=== PATIENT | female | born 1950 | race Caucasian/White ===

== ENCOUNTER 2018-08-03 10:56 | Emergency (ER) | payer OTHER ==
[~2018-08-03] VITALS: Ht 160 cm; Wt 78.0 kg
[2018-08-03 11:08] LABS: GLUCOSE,POINT OF CARE 189 MG/DL (70-110)
[2018-08-03] MEDS ORDERED: IBUPROFEN 400 MG TABLET PO ONE (13:00)
[2018-08-03 15:20] VITALS: BP 141/72
== END 2018-08-03 15:31 | disposition home or self-care (01) ==
LOC: EMS 10:57
DX: M19.071 Primary osteoarthritis, right ankle and foot (principal); I10 Essential (primary) hypertension; E78.00 Pure hypercholesterolemia, unspecified; E11.9 Type 2 diabetes mellitus without complications; Z88.0 Allergy status to penicillin